=== PATIENT | female | born 1995 | race African-American/Black ===

== ENCOUNTER 2016-12-28 12:57 | Emergency (ER) | payer MEDICAID ==
[2016-12-28 14:08] LABS: Bilirubin Negative (Negative); Blood, Urine Negative (Negative); Clarity Clear (Clear); Glucose, Urine (Dipstick) Negative (Negative); Leukocyte Small (Negative); Nitrite Negative (Negative); Protein, Urine (Dipstick) Negative (Neg-Trace)
[2016-12-28] MEDS ORDERED: Lidocaine Viscous Sol 2% 15 ml UD Cup ONE (14:09)
[2016-12-28] MEDS ORDERED: Mag-Al Plus 1200 MG/1200 MG/120 MG/30 ML UDCUP ONE (14:09)
[2016-12-28] MEDS ORDERED: Acetaminophen 500 MG TAB ONE (14:09)
[2016-12-28 14:22] LABS: Pregu Control Bar Appear? YES (CONTROL BAR)
[2016-12-28 14:28] LABS: Bacteria/HPF Rare-Few HPF (None Seen); Other Microscopic Description NO; RBC/HPF None Seen HPF (0-3)
== END 2016-12-28 14:43 | disposition home or self-care (01) ==
LOC: NAV ERS 12:57
DX: N39.0 Urinary tract infection, site not specified (principal)
CPT/HCPCS: 81003; 81015; 81025; 99284

== ENCOUNTER 2017-08-18 15:08 | Emergency (ER) | payer MEDICAID ==
[2017-08-18] MEDS ORDERED: Sodium Chloride 0.9% 1,000 ML ONE (15:34)
[2017-08-18] MEDS ORDERED: Acetaminophen 500 MG TAB ONE (15:39)
[2017-08-18 15:58] LABS: Bilirubin Negative (Negative); Blood, Urine Negative (Negative); Clarity Clear (Clear); Glucose, Urine (Dipstick) Negative (Negative); Leukocyte Negative (Negative); Nitrite Negative (Negative); Protein, Urine (Dipstick) Negative (Neg-Trace); pH, Urine 6.5 (5.0-9.0)
[2017-08-18 15:59] LABS: Specific Gravity, Urine 1.028 (1.002-1.036)
[2017-08-18 16:06] LABS: Pregnancy Test - Urine (BHCG) Negative (Negative); Pregu Control Background? CLEAR/WHITE (CLR/WHITE); Pregu Control Bar Appear? YES (CONTROL BAR); Specific Gravity 1.028 (1.002-1.036)
[2017-08-18 16:16] LABS: ALT (SGPT) 24 U/L (8-55); AST (SGOT) 21 U/L (5-34); Albumin 4.6 g/dL (3.5-5.0); Alkaline Phosphatase 67 U/L (40-150); Anion Gap 16 mmol/L (10-20); BUN (Urea Nitrogen) 13 mg/dL (7.0-18.7); Bilirubin, Total 0.3 mg/dL (0.2-1.2); Calc. Creatinine Clearance 0 mL/min (70-130); Carbon Dioxide 19 mmol/L (22-29); Chloride 106 mmol/L (98-107); Estimated GFR-MDRD Greater than 90; Globulin 4.1 g/dL (2.4-3.5); Glucose 92 mg/dL (70-105); Potassium 3.7 mmol/L (3.5-5.1); Protein, Total 8.7 g/dL (6.0-8.3); Sodium 137 mmol/L (136-145)
[2017-08-18 16:21] LABS: #Basophils 0.1 thou/uL (0.0-0.2); #Eosinphils 0.1 thou/uL (0.0-0.7); #Lymphocytes 2.8 thou/uL (1.20-3.40); #Monocytes 0.6 thou/uL (0.11-0.59); #Neutrophils 7.6 thou/uL (1.40-6.50); %Basophils 0.8 % (0.0-1.0); %Eosinophils 0.6 % (0.0-10.0); %Lymphocytes 25.1 % (28.0-48.0); %Monocytes 5.2 % (0.0-4.0); %Neutrophils 68.3 % (31.0-61.0); Hemoglobin 11.6 g/dL (12.0-16.0); Mean Corpuscular HGB CONC 30.6 g/dL (32.0-36.0); Mean Corpuscular Hemoglobin 24.9 pg (25.0-35.0); Mean Corpuscular Volume 81.5 fl (77.0-87.0); Mean Platelet Volume 7.4 fL (7.4-10.4); Platelet Count 353 thou/uL (130-400); RBC Distribution Width 15.2 % (11.5-14.5); Red Blood Cell (RBC) Count 4.66 mill/uL (4.00-5.20); White Blood Cell (WBC) Count 11.1 thou/uL (4.8-10.8)
[2017-08-18 16:22] LABS: Hypochromia SLIGHT = 6-15 cells (100X) (0-5/hpf); MDiff Complete? YES; PLT Morphology Comment Appears Adequate
[2017-08-18] MEDS ORDERED: Lidocaine 1% 20 ML MDV ONE (17:18)
[2017-08-18] MEDS ORDERED: cefTRIAXone\\ROCEPHIN 250 MG VIAL ONE (17:18)
[2017-08-18] MEDS ORDERED: Doxycycline 100 MG CAP ONE (17:18)
[2017-08-18 17:27] LABS: Wet Prep Clue Cells Clue Cells Absent (None Seen); Wet Prep Trichomonas Trichomonas Absent (None Seen)
== END 2017-08-18 18:05 | disposition home or self-care (01) ==
LOC: NAV ERS 15:08
DX: N72 Inflammatory disease of cervix uteri (principal); Z79.899 Other long term (current) drug therapy
CPT/HCPCS: 36415; 80053; 81003; 81025; 85025; 87086; 87210; 87491; 87591; 96360; 96372; J0696; J2001; J7050

== ENCOUNTER 2017-12-10 07:16 | Emergency (ER) | payer MEDICAID, OTHER ==
[2017-12-10 08:01] LABS: BHCG - Serum Negative (NEGATIVE); Pregs Control Bar Appear? YES (CONTROL BAR)
[2017-12-10 08:06] LABS: #Basophils 0.1 thou/uL (0.0-0.2); #Eosinphils 0.4 thou/uL (0.0-0.7); #Lymphocytes 2.8 thou/uL (1.20-3.40); #Monocytes 0.6 thou/uL (0.11-0.59); #Neutrophils 5.2 thou/uL (1.40-6.50); %Basophils 0.9 % (0.0-1.0); %Lymphocytes 31.1 % (21.0-51.0); %Monocytes 6.2 % (0.0-10.0); %Neutrophils 57.8 % (42.0-75.0); Hemoglobin 10.8 g/dL (12.0-16.0); Hypochromia MARKED = >30 cells (100X) (0-5/hpf); MDiff Complete? YES; Mean Corpuscular Hemoglobin 24.7 pg (27.0-31.0); Mean Corpuscular Volume 79.7 fl (81.0-99.0); Microcytosis SLIGHT = 6-15 cells (100X) (0-5/hpf); PLT Morphology Comment Appears Adequate; Platelet Count 293 thou/uL (130-400); RBC Distribution Width 16.1 % (11.5-14.5); White Blood Cell (WBC) Count 9.1 thou/uL (4.8-10.8)
[2017-12-10 08:10] LABS: CKMB 1.5 ng/mL (0-6.6); Troponin I Less than 0.010 ng/mL (< 0.028)
[2017-12-10 08:13] LABS: ALT (SGPT) 19 U/L (8-55); AST (SGOT) 33 U/L (5-34); Albumin 4.3 g/dL (3.5-5.0); Alkaline Phosphatase 62 U/L (40-150); Anion Gap 16 mmol/L (10-20); BUN (Urea Nitrogen) 14 mg/dL (7.0-18.7); Bilirubin, Total 0.2 mg/dL (0.2-1.2); CK (CPK) 1552 U/L (29-168); Calc. Creatinine Clearance 0 mL/min (70-130); Calcium 9.4 mg/dL (7.8-10.44); Carbon Dioxide 21 mmol/L (22-29); Chloride 108 mmol/L (98-107); Estimated GFR-MDRD Greater than 90; Globulin 3.6 g/dL (2.4-3.5); Glucose 104 mg/dL (70-105); Potassium 4.1 mmol/L (3.5-5.1); Protein, Total 7.9 g/dL (6.0-8.3); Sodium 141 mmol/L (136-145)
[2017-12-10] MEDS ORDERED: Iopamidol 370 76% 100 ML VIAL ONE (09:00)
[2017-12-10] MEDS ORDERED: Ondansetron HCl/PF 4 MG/2 ML Vial ONE (09:11)
--- NOTE | 2017-12-10 09:45 | RAD ---
PORTABLE CHEST: Date: 12/10/17 PROVIDED CLINICAL HISTORY: Chest pain. FINDINGS: Comparison made with the study dated 06/28/16. Cardiac silhouette appears enlarged, which may be at least partially on the basis of portable techniq ue. No focal consolidation, pleural fluid, or pneumothorax apparent. IMPRESSION: No evidence for an acute cardiopulmonary process. POS: [facility]
[2017-12-10 10:17] LABS: Bilirubin Negative (Negative); Blood, Urine Negative (Negative); Clarity Clear (Clear); Glucose, Urine (Dipstick) Negative (Negative); Leukocyte Negative (Negative); Nitrite Negative (Negative); Protein, Urine (Dipstick) Negative (Neg-Trace); Urobilinogen 0.2 mg/dL (0.2-1.0); pH, Urine 5.5 (5.0-9.0)
--- NOTE | 2017-12-10 11:13 | CT ---
CT PULMONARY ANGIOGRAM OF THE CHEST WITH IV CONTRAST AND 3D MIP RECONSTRUCTIONS: Date: 12/10/17 PROVIDED CLINICAL HISTORY: : Chest pain. FINDINGS: Comparison made with the study dated 06/28/16. There is no evidence for central or segmental pulmonary embolus. The heart, pericardium, and great ve ssels appear unremarkable. The lungs appear clear. No evidence for pleural fluid or pneumothorax. Oss eous structures demonstrate no acute findings. IMPRESSION: No evidence for central or segmental pulmonary embolus. POS: [facility]
== END 2017-12-10 11:58 ==
LOC: NAV ERS 07:16
DX: J06.9 Acute upper respiratory infection, unspecified (principal); R07.9 Chest pain, unspecified
CPT/HCPCS: 71045; 71275; 80053; 81003; 82553; 83880; 84484; 84703; 85025; 93005; 96361; 96374; J2405

== ENCOUNTER 2018-06-05 10:26 | Emergency (ER) | payer OTHER ==
[2018-06-05] MEDS ORDERED: Naproxen 500 MG TAB ONE (11:01)
== END 2018-06-05 11:04 | disposition home or self-care (01) ==
LOC: NAV ERS 10:26
DX: R51 Headache (principal)
CPT/HCPCS: 99283

== ENCOUNTER 2018-07-31 10:39 | Emergency (ER) | payer OTHER | END 2018-07-31 11:00 | disposition home or self-care (01) | LOC: NAV ERS 10:39 | DX: J02.9 Acute pharyngitis, unspecified (principal); G43.909 Migraine, unspecified, not intractable, without status migrainosus; Z86.711 Personal history of pulmonary embolism | CPT/HCPCS: 99282 ==

== ENCOUNTER 2018-08-15 17:32 | Outpatient (CLI) | payer SELFPAY | END 2018-08-15 17:33 | disposition home or self-care (01) | LOC: NAV OCC 17:32 | PROVIDERS: ATTEND Pathology Anatomic Pathology & Clinical Pathology | DX: Z02.1 Encounter for pre-employment examination (principal) | CPT/HCPCS: 99001 ==

== ENCOUNTER 2019-01-25 13:41 | Emergency (ER) | payer OTHER, SELFPAY | END 2019-01-25 14:30 | disposition home or self-care (01) | LOC: NAV ERS 13:41 | DX: J06.9 Acute upper respiratory infection, unspecified (principal); G43.909 Migraine, unspecified, not intractable, without status migrainosus | CPT/HCPCS: 99281 ==

== ENCOUNTER 2019-10-22 13:07 | Emergency (ER) | payer SELFPAY | END 2019-10-22 13:54 | disposition home or self-care (01) | LOC: NAV ERS 13:07 | DX: H10.9 Unspecified conjunctivitis (principal); G43.909 Migraine, unspecified, not intractable, without status migrainosus | CPT/HCPCS: 99283 ==

== ENCOUNTER 2020-01-16 16:59 | Emergency (ER) | payer SELFPAY ==
[2020-01-16] MEDS ORDERED: Ondansetron PF 4 MG/2 ML Vial ONE (17:20)
[2020-01-16] MEDS ORDERED: Sodium Chloride 0.9% 1,000 ML ONE (17:20)
[2020-01-16 17:24] LABS: Bilirubin Negative (Negative); Blood, Urine Negative (Negative); Glucose, Urine (Dipstick) Negative (Negative); Leukocyte Negative (Negative); Nitrite Negative (Negative); Protein, Urine (Dipstick) 30 mg/dL (Neg-Trace); Urobilinogen 0.2 mg/dL (Less than 2)
[2020-01-16] MEDS ORDERED: Fentanyl 100 MCG/2 ML VIAL ONE ×2 (17:29→18:09)
[2020-01-16 17:33] LABS: Clarity Hazy (Clear)
[2020-01-16 17:34] LABS: Bacteria/HPF 2+ HPF (None Seen); Mucous/LPF 3+ LPF (<2+); Pregnancy Test - Urine (BHCG) Negative (Negative); Pregu Control Background? CLEAR/WHITE (CLR/WHITE); Pregu Control Bar Appear? YES (CONTROL BAR); RBC/HPF 0-3 HPF (0-3); WBC/HPF 0-3 HPF (0-3)
[2020-01-16 17:37] LABS: #Basophils 0.2 thou/uL (0.0-0.2); #Eosinphils 0.1 thou/uL (0.0-0.7); #Lymphocytes 2.5 thou/uL (1.20-3.40); #Monocytes 0.7 thou/uL (0.11-0.59); #Neutrophils 11.9 thou/uL (1.40-6.50); %Eosinophils 0.7 % (0.0-10.0); %Lymphocytes 16.3 % (21.0-51.0); %Monocytes 4.5 % (0.0-10.0); %Neutrophils 77.6 % (42.0-75.0); Hemoglobin 12.7 g/dL (12.0-16.0); Mean Corpuscular HGB CONC 31.8 g/dL (32.0-36.0); Mean Corpuscular Hemoglobin 28.7 pg (27.0-31.0); Mean Corpuscular Volume 90.4 fL (78.0-98.0); Mean Platelet Volume 7.5 fL (7.4-10.4); Platelet Count 280 thou/uL (130-400); RBC Distribution Width 14.2 % (11.5-14.5); Red Blood Cell (RBC) Count 4.42 mill/uL (4.20-5.40); White Blood Cell (WBC) Count 15.4 thou/uL (4.8-10.8)
[2020-01-16 17:51] LABS: ALT (SGPT) 21 U/L (8-55); AST (SGOT) 16 U/L (5-34); Albumin 4.4 g/dL (3.5-5.0); Alkaline Phosphatase 54 U/L (40-110); Anion Gap 16 mmol/L (10-20); BUN (Urea Nitrogen) 18 mg/dL (7.0-18.7); Bilirubin, Total 0.2 mg/dL (0.2-1.2); Calc. Creatinine Clearance 0 mL/min (70-130); Calcium 9.2 mg/dL (7.8-10.44); Carbon Dioxide 19 mmol/L (22-29); Chloride 106 mmol/L (98-107); Estimated GFR-MDRD Greater than 90; Globulin 3.3 g/dL (2.4-3.5); Glucose 120 mg/dL (70-105); Potassium 3.5 mmol/L (3.5-5.1); Protein, Total 7.7 g/dL (6.0-8.3); Sodium 137 mmol/L (136-145)
--- NOTE | 2020-01-16 18:13 | CT ---
CT abdomen and pelvis noncontrast HISTORY: Left flank pain. FINDINGS: Each renal collecting system, ureter, and urinary bladder are decompressed without stone ap parent. Lack of contrast limits evaluation of the soft tissues. No evidence of bowel obstruction or inflammat ion. Intrauterine contraceptive device is transversely oriented. Based on the sagittal and coronal reformatted images, it appears to be within the lower uterine segment. An ill-defined complex partial ly cystic mass of the pelvis is centered superior and posterior to the uterus. It measures up to 13.0 cm length by 7.5 cm width. Near the inferior posterior margin is a cystic component that is 3.3 cm greatest diameter. Small amount of free fluid is present within the pelvis. IMPRESSION : No CT evidence of urinary tract obstruction or calcification. Large complex partially cystic mass within the pelvis with small amount of free fluid. Inflammatory p rocess versus neoplasm. Please consider pelvic sonogram and gynecologic evaluation. IUD in place.
== END 2020-01-16 18:54 | disposition short-term general hospital (02) ==
LOC: NAV ERS 16:59
DX: R19.00 Intra-abdominal and pelvic swelling, mass and lump, unspecified site (principal)
CPT/HCPCS: 74176; 80053; 81003; 81015; 81025; 85025; 96361; 96374; 96375; 96376; J2405; J3010; J7050

== ENCOUNTER 2020-04-03 19:02 | Emergency (ER) | payer OTHER, SELFPAY ==
[2020-04-05 12:14] LABS: SARS-CoV-2 MS2 Positive; SARS-CoV-2 N Gene Positive; SARS-CoV-2 S Gene Positive; SARS-CoV-2 orf1ab Positive
== END 2020-04-03 20:25 | disposition home or self-care (01) ==
LOC: NAV ERS 19:02
DX: U07.1 COVID-19 (principal); J02.9 Acute pharyngitis, unspecified; F17.210 Nicotine dependence, cigarettes, uncomplicated
CPT/HCPCS: 87081; 87430; 87635; 99283; U0003

== ENCOUNTER 2020-11-27 18:26 | Emergency (ER) | payer BC, OTHER ==
[2020-11-27 19:16] LABS: Bilirubin Negative (Negative); Blood, Urine Negative (Negative); Clarity Clear (Clear); Glucose, Urine (Dipstick) Negative (Negative); Ketone, Urine Negative (Negative); Leukocyte Negative (Negative); Nitrite Negative (Negative); Protein, Urine (Dipstick) Negative (Neg-Trace); Urobilinogen 0.2 mg/dL (Less than 2)
[2020-11-27 19:22] LABS: Pregnancy Test - Urine (BHCG) POSITIVE (Negative); Pregu Control Background? CLEAR/WHITE (CLR/WHITE); Pregu Control Bar Appear? YES (CONTROL BAR)
[2020-11-27 19:29] LABS: #Basophils 0.1 thou/uL (0.0-0.2); #Eosinphils 0.1 thou/uL (0.0-0.7); #Lymphocytes 2.5 thou/uL (1.20-3.40); #Monocytes 0.6 thou/uL (0.11-0.59); #Neutrophils 7.3 thou/uL (1.40-6.50); %Basophils 1.3 % (0.0-1.0); %Eosinophils 1.1 % (0.0-10.0); %Monocytes 5.8 % (0.0-10.0); %Neutrophils 68.8 % (42.0-75.0); Hemoglobin 12.7 g/dL (12.0-16.0); Mean Corpuscular Hemoglobin 29.6 pg (27.0-31.0); Mean Corpuscular Volume 89.8 fL (78.0-98.0); Mean Platelet Volume 7.8 fL (7.4-10.4); Platelet Count 280 thou/uL (130-400); RBC Distribution Width 13.8 % (11.5-14.5); Red Blood Cell (RBC) Count 4.28 mill/uL (4.20-5.40); White Blood Cell (WBC) Count 10.7 thou/uL (4.8-10.8)
[2020-11-27 19:41] LABS: ALT (SGPT) 15 U/L (8-55); AST (SGOT) 15 U/L (5-34); Albumin 4.4 g/dL (3.5-5.0); Alkaline Phosphatase 61 U/L (40-110); Anion Gap 16 mmol/L (10-20); BUN (Urea Nitrogen) 12 mg/dL (7.0-18.7); Bilirubin, Total 0.2 mg/dL (0.2-1.2); Calc. Creatinine Clearance 0 mL/min (70-130); Calcium 9.3 mg/dL (7.8-10.44); Carbon Dioxide 17 mmol/L (22-29); Chloride 109 mmol/L (98-107); Globulin 3.2 g/dL (2.4-3.5); Glucose 95 mg/dL (70-105); Potassium 3.5 mmol/L (3.5-5.1); Protein, Total 7.6 g/dL (6.0-8.3); Sodium 138 mmol/L (136-145)
== END 2020-11-27 20:30 | disposition left against medical advice (07) ==
LOC: NAV ERS 18:26
DX: Z32.01 Encounter for pregnancy test, result positive (principal); O26.891 Other specified pregnancy related conditions, first trimester; R10.31 Right lower quadrant pain; R10.2 Pelvic and perineal pain; O88.811 Other embolism in pregnancy, first trimester; O99.331 Smoking (tobacco) complicating pregnancy, first trimester; F17.210 Nicotine dependence, cigarettes, uncomplicated
CPT/HCPCS: 80053; 81003; 81025; 84702; 85025; 99284

== ENCOUNTER 2021-03-24 08:59 | Emergency (ER) | payer OTHER ==
[2021-03-24 22:05] LABS: SARS-CoV-2 PCR by NAA Not Detected (NotDetected)
== END 2021-03-24 09:52 | disposition home or self-care (01) ==
LOC: NAV ERS 08:59
DX: Z20.822 Contact with and (suspected) exposure to COVID-19 (principal); Z79.899 Other long term (current) drug therapy
CPT/HCPCS: 99283; U0003; U0005

== ENCOUNTER 2021-04-30 12:47 | Emergency (ER) | payer BC, OTHER ==
[2021-04-30 13:26] LABS: #Basophils 0.1 thou/uL (0.0-0.2); #Eosinphils 0.2 thou/uL (0.0-0.7); #Lymphocytes 2.1 thou/uL (1.20-3.40); #Monocytes 1.1 thou/uL (0.11-0.59); #Neutrophils 11.7 thou/uL (1.40-6.50); %Basophils 0.5 % (0.0-1.0); %Lymphocytes 13.8 % (21.0-51.0); %Monocytes 7.4 % (0.0-10.0); %Neutrophils 77.3 % (42.0-75.0); Hemoglobin 10.4 g/dL (12.0-16.0); Mean Corpuscular Hemoglobin 28.3 pg (27.0-31.0); Mean Corpuscular Volume 88.4 fL (78.0-98.0); Mean Platelet Volume 7.3 fL (7.4-10.4); Platelet Count 268 thou/uL (130-400); RBC Distribution Width 13.2 % (11.5-14.5); Red Blood Cell (RBC) Count 3.68 mill/uL (4.20-5.40); White Blood Cell (WBC) Count 15.2 thou/uL (4.8-10.8)
[2021-04-30 13:31] LABS: Prothrombin Time 13.6 sec (12.0-14.7)
[2021-04-30 13:32] LABS: PTT 26.2 sec (22.9-36.1)
[2021-04-30 13:35] LABS: D-Dimer Test 0.59 *mcg/mL (0.27-0.43)
[2021-04-30 13:36] LABS: Bilirubin Negative (Negative); Blood, Urine Negative (Negative); Glucose, Urine (Dipstick) 500 mg/dL (Negative); Ketone, Urine Negative (Negative); Leukocyte Trace (Negative); Nitrite Negative (Negative); Protein, Urine (Dipstick) 30 mg/dL (Neg-Trace); Specific Gravity, Urine 1.025 (1.005-1.030)
[2021-04-30 13:39] LABS: ALT (SGPT) 15 U/L (8-55); AST (SGOT) 12 U/L (5-34); Albumin 3.6 g/dL (3.5-5.0); Alkaline Phosphatase 71 U/L (40-110); Anion Gap 14 mmol/L (10-20); BUN (Urea Nitrogen) 6 mg/dL (7.0-18.7); Bilirubin, Total 0.2 mg/dL (0.2-1.2); Calc. Creatinine Clearance 0 mL/min (70-130); Calcium 9.4 mg/dL (7.8-10.44); Carbon Dioxide 17 mmol/L (22-29); Chloride 109 mmol/L (98-107); Globulin 3.7 g/dL (2.4-3.5); Glucose 113 mg/dL (70-105); Potassium 3.9 mmol/L (3.5-5.1); Protein, Total 7.3 g/dL (6.0-8.3); Sodium 136 mmol/L (136-145)
[2021-04-30 13:41] LABS: Clarity SL HAZY (Clear)
[2021-04-30 13:46] LABS: RBC/HPF 0-3 HPF (0-3)
[2021-04-30 13:47] LABS: Bacteria/HPF 2+ HPF (None Seen)
== END 2021-04-30 16:14 | disposition home or self-care (01) ==
LOC: NAV ERS 12:47
DX: O23.42 Unspecified infection of urinary tract in pregnancy, second trimester (principal); Z3A.27 27 weeks gestation of pregnancy; O99.891 Other specified diseases and conditions complicating pregnancy; R06.02 Shortness of breath; Z86.711 Personal history of pulmonary embolism
CPT/HCPCS: 71045; 80053; 81003; 81015; 83880; 84484; 85025; 85379; 85610; 85730; 87086; 93005; 94760

== ENCOUNTER 2021-06-30 19:11 | Emergency (ER) | payer OTHER ==
[2021-06-30 19:40] LABS: #Basophils 0.1 thou/uL (0.0-0.2); #Eosinphils 0.1 thou/uL (0.0-0.7); #Lymphocytes 2.5 thou/uL (1.20-3.40); #Monocytes 0.9 thou/uL (0.11-0.59); #Neutrophils 9.7 thou/uL (1.40-6.50); %Basophils 0.5 % (0.0-1.0); %Lymphocytes 18.7 % (21.0-51.0); %Monocytes 6.5 % (0.0-10.0); %Neutrophils 73.4 % (42.0-75.0); Hemoglobin 10.2 g/dL (12.0-16.0); Mean Corpuscular HGB CONC 30.9 g/dL (32.0-36.0); Mean Corpuscular Hemoglobin 26.3 pg (27.0-31.0); Mean Corpuscular Volume 85.2 fL (78.0-98.0); Mean Platelet Volume 8.4 fL (7.4-10.4); Platelet Count 240 thou/uL (130-400); RBC Distribution Width 14.7 % (11.5-14.5); Red Blood Cell (RBC) Count 3.86 mill/uL (4.20-5.40); White Blood Cell (WBC) Count 13.2 thou/uL (4.8-10.8)
[2021-06-30 19:41] LABS: Bilirubin Negative (Negative); Blood, Urine Negative (Negative); Clarity SL HAZY (Clear); Glucose, Urine (Dipstick) 500 mg/dL (Negative); Ketone, Urine Negative (Negative); Leukocyte Negative (Negative); Nitrite Negative (Negative); Protein, Urine (Dipstick) Negative (Neg-Trace); Urobilinogen 0.2 mg/dL (Less than 2)
[2021-06-30 19:58] LABS: ALT (SGPT) 15 U/L (8-55); AST (SGOT) 21 U/L (5-34); Albumin 3.4 g/dL (3.5-5.0); Alkaline Phosphatase 108 U/L (40-110); Anion Gap 15 mmol/L (10-20); BUN (Urea Nitrogen) 8 mg/dL (7.0-18.7); Bilirubin, Total 0.2 mg/dL (0.2-1.2); Calc. Creatinine Clearance 0 mL/min (70-130); Calcium 9.5 mg/dL (7.8-10.44); Carbon Dioxide 16 mmol/L (22-29); Chloride 110 mmol/L (98-107); Globulin 3.5 g/dL (2.4-3.5); Glucose 118 mg/dL (70-105); Potassium 3.7 mmol/L (3.5-5.1); Protein, Total 6.9 g/dL (6.0-8.3); Sodium 137 mmol/L (136-145)
== END 2021-06-30 19:55 | disposition short-term general hospital (02) ==
LOC: NAV ERS 19:11
DX: O47.03 False labor before 37 completed weeks of gestation, third trimester (principal); Z3A.36 36 weeks gestation of pregnancy
CPT/HCPCS: 80053; 81003; 85025; 94760

== ENCOUNTER 2023-05-21 08:49 | Emergency (ER) | payer OTHER ==
[2023-05-21] MEDS ORDERED: Ketorolac Tromethamine 60 MG/2 ML VIAL ONE (09:16)
== END 2023-05-21 09:30 | disposition home or self-care (01) ==
LOC: NAV ERS 08:49
DX: M62.838 Other muscle spasm (principal)
CPT/HCPCS: 96372; 99284; J1885

== ENCOUNTER 2023-09-23 07:36 | Emergency (ER) | payer OTHER, SELFPAY ==
[2023-09-23] MEDS ORDERED: Ibuprofen 800 MG TAB ONE (07:55)
== END 2023-09-23 08:35 | disposition home or self-care (01) ==
LOC: NAV ERS 07:36
DX: J06.9 Acute upper respiratory infection, unspecified (principal); B34.9 Viral infection, unspecified
CPT/HCPCS: 87081; 87430; 87804; 99283

== ENCOUNTER 2024-06-01 09:47 | Emergency (ER) | payer OTHER, SELFPAY | END 2024-06-01 10:21 | disposition home or self-care (01) | LOC: NAV ERS 09:47 | DX: L25.9 Unspecified contact dermatitis, unspecified cause (principal) | CPT/HCPCS: 99282 ==

== ENCOUNTER 2024-08-14 07:45 | Emergency (ER) | payer SELFPAY | END 2024-08-14 08:55 | disposition home or self-care (01) | LOC: NAV ERS 07:45 | DX: J06.9 Acute upper respiratory infection, unspecified (principal) | CPT/HCPCS: 87081; 87428; 87430; 99283 ==